=== PATIENT | male | born 1980 | race Caucasian/White ===

== ENCOUNTER 2019-08-09 20:05 | Emergency (ER) | payer OTHER ==
[~2019-08-09] VITALS: Ht 170.2 cm; Wt 131.5 kg
[2019-08-09] MEDS ORDERED: ASPIRIN EC 81 MG TABLET.DR PO ONE ×2 (20:24→20:30)
--- NOTE | 2019-08-09 20:41 | NUR ---
PT CAME TO ER BED 7 C/O RIGHT-SIDED CHEST PAIN. PT STATES THAT HE WAS DRIVING HOME WHEN HE EXPERIENCED SOME CHEST PAIN ON THE RIGHT SIDE. DENIES SOB AT THE TIME. PT STATES THAT WHEN HE GOT HOME HE FELT DIZZY. PT STATES HE TOOK A BABY ASPIRIN AROUND 1900 WHEN HE GOT HOME. AAOX4. NO SOB. BREATHING EVENLY AND UNLABORED ON ROOM AIR. CONNECTED TO THE MONITOR.
[2019-08-09 20:44] LABS: BASOPHILS % (AUTO) 0.6 % (0.0-2.0); EOSINOPHILS % (AUTO) 4.1 % (0.0-6.0); HEMATOCRIT 43 % (39-51); HEMOGLOBIN 14.8 g/dL (13.5-17.5); LYMPHOCYTES # (AUTO) 3.6 /CMM (0.8-4.8); LYMPHOCYTES % (AUTO) 42.7 % (20.0-44.0); MEAN CORPUSCULAR HGB CONC 34 g/dl (31.0-36.0); MEAN CORPUSCULAR VOLUME 90 fL (80-96); MONOCYTES # (AUTO) 0.6 /CMM (0.1-1.30); MONOCYTES % (AUTO) 6.6 % (2.0-12.0); NEUTROPHILS # (AUTO) 3.9 /CMM (1.8-8.9); PLATELET COUNT (AUTO) 324 /CMM (150-450); RED BLOOD CELL COUNT(AUTO) 4.82 MIL/uL (4.5-6.0); WHITE BLOOD COUNT (AUTO) 8.4 K/uL (4.3-11.0)
--- NOTE | 2019-08-09 20:46 | NUR ---
XRAY AT BEDSIDE
[2019-08-09 20:52] LABS: CALCIUM, SERUM 9.6 mg/dL (8.5-10.1); CARBON DIOXIDE 29 mmol/L (21-32); CHLORIDE 102 mmol/L (98-107); CREATININE 1.1 mg/dL (0.6-1.3); GLUCOSE 155 mg/dL (74-106); POTASSIUM 3.8 mmol/L (3.5-5.1); SODIUM SERUM 139 mmol/L (136-145); UREA NITROGEN, BLOOD 15 mg/dL (7-18)
[2019-08-09 22:38] VITALS: BP 147/88
--- NOTE | 2019-08-09 22:38 | NUR ---
Patient discharged to home in stable condition. Written and verbal after care instructions given. Patient verbalizes understanding of instruction.
== END 2019-08-09 22:38 | disposition home or self-care (01) ==
LOC: ER 20:06
DX: R07.89 Other chest pain (principal); I10 Essential (primary) hypertension; M10.9 Gout, unspecified
CPT/HCPCS: 36415; 71045-TC; 80048-TC; 84484-TC; 85025-TC